=== PATIENT | female | born 2000 | race Caucasian/White ===

== ENCOUNTER 2024-04-17 21:24 | Emergency (ER) | payer OTHER, SELFPAY ==
--- NOTE | ~2024-04-17 | CT_ITS ---
EXAMINATION: CT SOFT TISSUE NECK WITH CONTRAST CLINICAL INFORMATION: Reason for Exam Left-sided neck pain after the gym COMPARISON: None available. TECHNIQUE: Following the intravenous administration of 60 mL of Omnipaque 350 intravenous contrast, helical imaging was performed in the axial plane with generation of coronal and sagittal reformatted images. This CT examination was performed using dose optimization techniques as appropriate, variously including the following: *Automated exposure control *Adjustment of mA and/or kV according to patient size (this includes techniques or standardized protocols for targeted exams where dose is matched to indication/reason for exam; i.e. extremities or head) *Use of iterative reconstruction technique DLP: 286 mGy-cm FINDINGS: The nasopharynx, oropharynx, and hypopharynx are patent. No mucosal pharyngeal abnormality is seen. The parapharyngeal fat is preserved. The chairman ceo, parotid, and submandibular spaces appear normal and symmetric bilaterally. Several bilateral subcentimeter cervical lymph nodes are seen without adenopathy. The carotid vasculature is patent. The thyroid gland is unremarkable. The lung apices are clear. Visualized portions of the brain parenchyma are unremarkable. The mastoid air cells are well aerated. The paranasal sinuses are clear. The visualized orbits are unremarkable. The mandibular condyles are well-seated in the condylar fossa. No acute fracture is seen. CT/CT soft tissue neck w IV con IMPRESSION: No acute findings identified in the neck.
[2024-04-17 21:25] VITALS: BP 113/79; PULSE 81; RESP 18; TEMP 37.6; O2SAT 96; BMI 22.4
--- NOTE | 2024-04-18 00:29 | ED_ITS ---
HPI - Neck Pain/Injury General Chief Complaint: Neck Pain/Injury Stated Complaint: neck pain, no known injury Time Seen by Provider: 04/18/24 00:13 Source: patient Mode of arrival: ambulatory Limitations: no limitations History of Present Illness ED Provider: DR. Raya HPI Narrative: 24-year-old female came in for evaluation of left-sided neck pain after went to jump today patient thinks that she pulled a muscle, initially patient complained then few hours later started to have pain in her left side of the neck tried to take ibuprofen and Tylenol without relief of patient's pain. No headache, no weakness, no numbness. Related Data Previous Rx's ?Medication ?Instructions ?Recorded oxycodone 5 mg tablet 5 mg PO BID PRN pain #14 tabs 04/18/24 Allergies Allergy/AdvReac Type Severity Reaction Status Date / Time No Known Allergies Allergy Verified 04/17/24 21:33 Review of Systems 2 Review of Systems: All other systems are reviewed and are negative Constitutional: Reports as per HPI and Reports no additional constitutional complaints Eyes: Reports as per HPI and Reports no additional eye complaints Reports system reviewed and no additional complaints, except as documented Cardiovascular: Reports as per HPI and Reports no additional cardiovascular complaints Respiratory: Reports as per HPI and Reports no additional respiratory complaints Gastrointestinal: Reports as per HPI and Reports no additional gastrointestinal complaints Genitourinary: Reports no additional female genitourinary complaints Musculoskeletal: Reports no additional musculoskeletal complaints Skin/Breast: Reports system reviewed and no additional complaints, except as docu Psychiatric: Reports no additional psychiatric complaints Endocrine: Reports no additional endocrine complaints Hematologic/Lymphatic: Reports no additional hematologic/lymphatic complaints Allergic/Immunologic: Reports no additional allergic/immunologic complaints Reports system reviewed and no additional complaints, except as documented and Reports Abnormal speech present [facility] Social History Social History Smoked in Last 30 Days: No Use of substances other than those prescribed or required for medical reasons: No Advance Directives: No Advance Directives Information Provided: Yes Do you have a plan to hurt others: No Plan Patient : No Physical Exam 2 Vital Signs: Vital Signs: Last Vital Signs Temp 98.0 F 04/18/24 04:00 Pulse 69 04/18/24 04:00 Resp 12 04/18/24 04:00 BP 105/62 04/18/24 04:00 Pulse Ox 100 04/18/24 04:00 O2 Del Method Room Air 04/18/24 04:00 BMI result Body Mass Index 22.4 Vital signs have been reviewed and appear to be correct. Blood pressure elevated. Heart rate normal. Respiratory rate normal. Temperature normal. Oxygen saturation normal. Appearance: Alert. Oriented X3. No acute distress. Head: Normal external exam. Normocephalic. Atraumatic. No Hill signs noted. No raccoon eyes noted Eyes: PERRLA. EOMI. Conjunctiva and sclera normal. Eyelids normal. ENT: TM's Normal. Pharynx normal. Uvula midline. Moist mucous membranes. No trismus noted. No drooling noted. No muffled voice noted. Neck: Normal inspection. Mild tenderness to the left side of the neck, no midline tenderness on the C-spine, no palpable hematoma or mass on the side of the neck. CVS: Normal heart rate and rhythm. Heart sound normal. No murmurs noted. Pulses normal throughout. Respiratory: No respiratory distress. Painless inspiration. Breath sounds normal. No wheezes/rales/rhonchi noted. Chest nontender. No accessory muscle usage noted or decreased air movement noted. Abdomen: Soft and nontender. Bowel sounds normal in all 4 quadrants. No distention noted. No organomegaly noted. No visible injury noted. Back: No CVA tenderness. Full range of motion noted. Skin: Skin warm and dry. Normal skin color. Normal skin turgor. No rashes/lesions/lacerations noted. Extremities: No lower extremity edema. Extremities exhibit normal range of motion. Extremities nontender. Neuro: Oriented X 3. Cranial nerve exam: II-XII are grossly intact No motor deficit. No sensory deficit. Reflexes normal. Course Reevaluation(s) Reevaluation #1: Patient feels better, CT of the soft tissue neck is non revealing, continue with pain medication for symptoms control. Time: 04:50 Medications Administered Discontinued Medications Generic Name Dose Route Start Last Admin Trade Name Freq PRN Reason Stop Dose Admin Hydromorphone HCl 1 mg 04/18/24 03:12 04/18/24 03:18 Hydromorphone Hcl 1 Mg/Ml Syringe IVPUSH 04/18/24 03:13 1 mg ONCE ONE Administration Protocol Iohexol 60 ml 04/18/24 02:20 04/18/24 02:21 Iohexol 350 Mg/Ml 100 Ml Infus..Btl IV 04/18/24 02:21 60 ml ONCE ONE Administration Ketorolac Tromethamine 30 mg 04/18/24 00:32 04/18/24 00:44 Ketorolac Tromethamine 30 Mg/Ml Vial IVPUSH 04/18/24 00:33 30 mg ONCE ONE Administration Morphine Sulfate 2 mg 04/18/24 00:30 04/18/24 00:44 Morphine Sulfate 2 Mg/Ml Cartridge IVPUSH 04/18/24 00:31 2 mg ONCE ONE Administration Protocol Medical Decision Making Differential Diagnosis Differential Diagnoses: The differential diagnosis associated with the presentation includes (Cervical spine injury, soft tissue injury, hematoma, pulled muscle.) Admission/Observation Consideration of admission/observation: Escalation of care including admission/observation considered Lab Data 04/18/24 01:14 04/18/24 01:14 Labs: Lab Results 04/18/24 Range/Units 01:14 WBC 6.0 (4.8-10.8) X10*3/uL RBC 4.31 (4.20-5.50) X10*6/uL Hgb 13.7 (12.0-16.0) g/dl Hct 39.2 (37.0-47.0) % MCV 91.0 (80.0-98.0) fL MCH 31.8 (27.0-33.0) pg MCHC 34.9 (31.0-35.0) g/dl RDW 11.8 (11.0-16.0) % Plt Count 299 (160-400) X10*3/uL MPV 9.2 L (9.4-12.3) fL Immature Gran % (Auto) 0.3 (0.0-0.4) % Neut % (Auto) 41.9 L (45-73) % Lymph % (Auto) 42.3 H (20-40) % Oliver % (Auto) 10.7 (2-11) % Eos % (Auto) 4.5 H (0-4) % Baso % (Auto) 0.3 (0-2) % Lymph # (Auto) 2.5 (1.2-4.9) X10*3/uL Oliver # (Auto) 0.6 (0.1-1.2) X10*3/uL Eos # (Auto) 0.3 (0.0-0.4) X10*3/uL Baso # (Auto) 0.0 (0.0-0.2) X10*3/uL Abs Immat Gran (auto) 0.02 (0.00-0.03) X10*3/uL Absolute Neuts (auto) 2.5 (2.0-8.3) x10*3/uL Absolute Nucleated RBC 0.000 (0.0-0.012) X10*3/uL Nucleated RBC % (auto) 0.0 (0.0-0.2) /100WBC Sodium 141 (135-145) mmol/L Potassium 4.0 (3.3-5.1) mmol/L Chloride 107 (96-108) mmol/L Carbon Dioxide 25 (22-29) mmol/L Anion Gap 13 (12-20) BUN 13 (9-16) mg/dL Creatinine 0.87 (0.5-1.4) mg/dL Estim Creat Clear Calc 81.8 Estimated GFR > 60 Random Glucose 85 (60-115) mg/dL Calcium 9.7 (8.4-10.2) mg/dL Beta HCG, Quant < 2 mIU/mL Discharge Plan Discharge Clinical Impression: Strain of neck muscle Patient Disposition: Home, Self-Care Instructions: Cervical Strain (ED) Prescriptions: New oxycodone 5 mg tablet 5 mg PO BID PRN (Reason: pain) Qty: 14 0RF Rx Instructions: Partial Fill upon patient request. Stand Alone Forms: Work/School Release Print Language: Bhutanese
[2024-04-18] MEDS: Morphine Sulfate 2 MG/ML CARTRIDGE IVPUSH (00:44)
[2024-04-18] MEDS: Ketorolac Tromethamine 30 MG/ML VIAL IVPUSH (00:44)
[2024-04-18 01:22] LABS: Basophils Percent Auto 0.3 % (0-2); Eosinophils Absolute Auto 0.3 X10*3/uL (0.0-0.4); Eosinophils Percent Auto 4.5 % (0-4); Hematocrit 39.2 % (37.0-47.0); Hemoglobin 13.7 g/dl (12.0-16.0); Imm Gran Abs Auto 0.02 X10*3/uL (0.00-0.03); Imm Gran Pct Auto 0.3 % (0.0-0.4); Lymphocytes Absolute Auto 2.5 X10*3/uL (1.2-4.9); Lymphocytes Percent Auto 42.3 % (20-40); MANUAL DIFF FLAG NO; Mean Corpuscular HGB Conc 34.9 g/dl (31.0-35.0); Mean Corpuscular Hemoglobin 31.8 pg (27.0-33.0); Mean Platelet Volume 9.2 fL (9.4-12.3); Monocytes Absolute Auto 0.6 X10*3/uL (0.1-1.2); Monocytes Percent Auto 10.7 % (2-11); Neutrophils Absolute Auto 2.5 x10*3/uL (2.0-8.3); Neutrophils Percent Auto 41.9 % (45-73); Platelet Count 299 X10*3/uL (160-400); Red Blood Count 4.31 X10*6/uL (4.20-5.50); Red Cell Distribution Width 11.8 % (11.0-16.0)
[2024-04-18 01:39] LABS: Anion Gap 13 (12-20); Blood Urea Nitrogen 13 mg/dL (9-16); Calcium 9.7 mg/dL (8.4-10.2); Carbon Dioxide 25 mmol/L (22-29); Chloride 107 mmol/L (96-108); Creatinine Clr Calc Pharmacy 81.8; Estimated Glomerular Filt Rate > 60; Glucose Random 85 mg/dL (60-115); Sodium 141 mmol/L (135-145)
[2024-04-18 01:46] LABS: HCG Quantitative < 2 mIU/mL
[2024-04-18 02:00] VITALS: BP 102/67; PULSE 63; RESP 14; TEMP 36.4; O2SAT 100
--- NOTE | 2024-04-18 02:07 | PC.NURSE ---
Patient to CT scan
[2024-04-18] MEDS: iohexoL 350 MG/ML 100 ML INFUS..BTL 60 ML IV (02:21)
[2024-04-18] MEDS: HYDROmorphone HCl 1 MG/ML SYRINGE IVPUSH (03:18)
[2024-04-18 04:00] VITALS: BP 105/62; PULSE 69; RESP 12; TEMP 36.7; O2SAT 100
[2024-04-18 04:52] VITALS: BP 105/62; PULSE 69; RESP 12; TEMP 36.7
[2024-04-18] MEDS: Ondansetron ODT 4 MG TAB.RAPDIS TRANSLINGU (05:05)
== END 2024-04-18 05:07 | disposition home or self-care (01) ==
PROVIDERS: Emergency Provider Emergency Medicine
DX: S16.1XXA Strain of muscle, fascia and tendon at neck level, initial encounter (principal); X50.9XXA Other and unspecified overexertion or strenuous movements or postures, initial encounter; Y93.B9 Activity, other involving muscle strengthening exercises; Y92.39 Other specified sports and athletic area as the place of occurrence of the external cause; Y99.9 Unspecified external cause status
CPT/HCPCS: 36415; 70491; 80048; 84702; 85025; 96374; 96375; 99284; J1170; J1885; J2270; Q9967